=== PATIENT | female | born 2000 | race Caucasian/White ===

== ENCOUNTER 2020-05-22 21:41 | Emergency (ER) | payer MEDICAID ==
[~2020-05-22] VITALS: Ht 160 cm; Wt 80.8 kg
[2020-05-22] MEDS ORDERED: ONDANSETRON 2MG/ML, 2ML ONE (22:05)
[2020-05-22] MEDS ORDERED: MORPHINE SULFATE 4 MG/ML, 1ML ONE (22:05)
[2020-05-22] MEDS: MORPHINE SULFATE 4 MG/ML, 1ML IVPush PRN (22:08)
[2020-05-22] MEDS ORDERED: SODIUM CHLORIDE 0.9% 1,000ML IVBOLUS ONE (22:30)
[2020-05-22] MEDS ORDERED: ONDANSETRON 2MG/ML, 2ML IVPush ONE (22:30)
[2020-05-22] MEDS ORDERED: SODIUM CHLORIDE FLUSH 10ML SYR IVF ONE (22:30)
[2020-05-22 22:37] LABS: BASOPHILS % (AUTO) 1 % (0-1); EOSINOPHILS % (AUTO) 1 % (1-7); LYMPHOCYTES % (AUTO) 24 % (22-44); MEAN CORPUSCULAR HEMOGLOBIN 30.2 pg (27.0-34.8); MEAN CORPUSCULAR HGB CONC 33.6 g/dL (32.4-35.8); MEAN PLATELET VOLUME 7.8 fL (7.4-10.4); MONOCYTES % (AUTO) 9 % (2-9); NEUTROPHILS % (AUTO) 66 % (42-75); PLATELET COUNT 341 x10^3/uL (130-400); RED BLOOD COUNT 4.64 x10^6/uL (3.82-5.3); RED CELL DISTRIBUTION WIDTH 13.3 % (9.6-15.2)
[2020-05-22 22:38] LABS: MD NO
[2020-05-22 22:47] LABS: ALANINE AMINOTRANSFERASE 17 U/L (12-78); ALBUMIN 3.5 g/dL (3.4-5.0); ANION GAP 4 mmol/L (5-15); CALCIUM 8.7 mg/dL (8.5-10.1); CHLORIDE 107 mmol/L (98-107); CREATININE 0.76 mg/dL (0.55-1.02)
[2020-05-22 22:51] LABS: ALKALINE PHOSPHATASE 156 U/L (45-117); BILIRUBIN,TOTAL 0.4 mg/dL (0.2-1.0); TOTAL PROTEIN 7.8 g/dL (6.4-8.2)
[2020-05-22 22:54] LABS: MICROSCOPIC INDICATED
--- NOTE | 2020-05-22 23:16 | NUR ---
MD AT BEDSIDE. PATIENT UPDATED ON PLAN OF CARE. NO NOTED ADDITIONAL NEEDS AT THIS TIME.
--- NOTE | 2020-05-22 23:31 | NUR ---
PATIENT TAKEN TO CT WITH STATION CHIEF ON [facility].
[2020-05-22] MEDS ORDERED: OMNIPAQUE 350 MG/ML, 100ML BOTTLE ONE (23:43)
--- NOTE | 2020-05-22 23:57 | NUR ---
PATIENT RETURNED FROM. CT, TOLERATED WELL.
[2020-05-23] MEDS ORDERED: MORPHINE SULFATE 4 MG/ML, 1ML ONE (00:13)
[2020-05-23] MEDS: MORPHINE SULFATE 4 MG/ML, 1ML IVPush PRN (00:15)
[2020-05-23] MEDS ORDERED: CEFDINIR 300 MG CAPSULE PO ONE (00:30)
[2020-05-23] MEDS ORDERED: CEFDINIR 300 MG CAPSULE ONE (00:35)
[2020-05-23 01:06] VITALS: BP 106/77
--- NOTE | 2020-05-23 01:08 | NUR ---
PATIENT CLEARED FOR DISCHARGE. NO NOTED ACUTE DISTRESS. PATIENT AMBULATORY TO WHEELCHAIR WITHOUT COMPLICATIONS WITH MOTHER. PATIENT VERBALIZED UNDERSTANDING OF SELF CARE AND FOLLOW UP INSTRUCTIONS. PATIENT TO DISCHARGE DESK WITHOUT COMPLICATIONS WITH BELONGINGS.
== END 2020-05-23 01:10 | disposition home or self-care (01) ==
LOC: ED 23:00
DX: K52.9 Noninfective gastroenteritis and colitis, unspecified (principal)
CPT/HCPCS: 36415; 74177; 80053; 81001; 83690; 84703; 85025; 87086; 96361; 96374; 96375; 96376; 99285; J2270; J2405; J7030; Q9967

== ENCOUNTER 2020-05-24 05:41 | Emergency (ER) | payer MEDICAID ==
[~2020-05-24] VITALS: Ht 167.6 cm; Wt 83.8 kg
[2020-05-24] MEDS ORDERED: KETOROLAC 30 MG/1 ML ONE (06:28)
[2020-05-24] MEDS ORDERED: ONDANSETRON 2MG/ML, 2ML ONE (06:28)
[2020-05-24 06:30] LABS: BASOPHILS % (AUTO) 0 % (0-1); EOSINOPHILS % (AUTO) 1 % (1-7); LYMPHOCYTES % (AUTO) 20 % (22-44); MD NO; MEAN CORPUSCULAR HEMOGLOBIN 30.3 pg (27.0-34.8); MEAN CORPUSCULAR HGB CONC 33.7 g/dL (32.4-35.8); MEAN PLATELET VOLUME 7.6 fL (7.4-10.4); MONOCYTES % (AUTO) 8 % (2-9); NEUTROPHILS % (AUTO) 70 % (42-75); PLATELET COUNT 322 x10^3/uL (130-400); RED BLOOD COUNT 4.37 x10^6/uL (3.82-5.3)
[2020-05-24] MEDS ORDERED: SODIUM CHLORIDE FLUSH 10ML SYR IVF ONE (06:30)
[2020-05-24] MEDS ORDERED: KETOROLAC 30 MG/1 ML IVPush ONE (06:30)
[2020-05-24] MEDS ORDERED: ONDANSETRON 2MG/ML, 2ML IVPush ONE (06:30)
[2020-05-24 06:38] LABS: ALANINE AMINOTRANSFERASE 13 U/L (12-78); ALBUMIN 3.2 g/dL (3.4-5.0); ANION GAP 3 mmol/L (5-15); CALCIUM 8.7 mg/dL (8.5-10.1); CHLORIDE 109 mmol/L (98-107); CREATININE 0.66 mg/dL (0.55-1.02)
[2020-05-24 06:40] LABS: ALKALINE PHOSPHATASE 129 U/L (45-117); BILIRUBIN,TOTAL 0.2 mg/dL (0.2-1.0); TOTAL PROTEIN 7.3 g/dL (6.4-8.2)
--- NOTE | 2020-05-24 07:12 | NUR ---
REPORT FROM LUCILLE CARLIN/GARCÍA CARLIN CLE[employer] [facility] UA SENT [place] SCAN AT [id number]
[2020-05-24 07:31] LABS: MICROSCOPIC INDICATED
[2020-05-24 08:02] VITALS: BP 143/89
== END 2020-05-24 08:05 | disposition home or self-care (01) ==
LOC: ED 06:00
DX: R10.31 Right lower quadrant pain (principal); R10.32 Left lower quadrant pain; R11.0 Nausea
CPT/HCPCS: 36415; 74177; 80053; 81001; 83690; 85025; 87086; 99285